=== PATIENT | male | born 1970 | race Caucasian/White ===

== ENCOUNTER → 2020-11-25 16:49 | Outpatient (CLI) | payer BC, SELFPAY ==
[2020-11-25 17:14] LABS: Hematocrit 42.7 % (40-54); Hemoglobin 14.2 g/dL (13.0-16.5); Mean Corp Hgb Conc 33.3 g/dL (32-36); Mean Corpuscular Hgb 26.8 pg (27.0-32.0); Mean Corpuscular Volume 80.6 fL (80-94); Mean Platelet Vol. 8.6 fl (6.2-12.0); Platelet Count 589 K/mm3 (150-450); RBC Distribution Width CV 15.9 % (11.6-14.6); RBC Distribution Width SD 46.4 fl (35.1-43.9); White Blood Count 9.1 K/mm3 (4.4-11.0)
[2020-11-25 17:15] LABS: Scan Indicated on CBC? Y/N NO
[2020-11-25 17:50] LABS: ALB/GLOB Ratio 1.3 RATIO (0.9-2.4); AST(SGOT) 14 U/L (15-37); Alanine Aminotransfer ALT/SGPT 22 U/L (16-61); Alkaline Phosphatase 116 U/L (45-117); Anion Gap 3 (5-15); BUN 8 mg/dL (7-18); BUN/Creat Ratio 9.8 RATIO (10-20); Chloride 103 mmol/L (98-107); Creatinine, Serum 0.82 mg/dL (0.70-1.30); EST Glomerular Filtration Rate 105 mL/min (>60); Est Glom Filt Rate - Afr Amer 128 mL/min (>60); Globulin 3.1 g/dL (2.2-4.2); Glucose 56 mg/dL (74-106); Potassium 3.9 mmol/L (3.5-5.1); Protein, Total 7.1 g/dL (6.4-8.2); Sodium Level 136 mmol/L (136-145)
[2020-12-02 12:08] LABS: Testosterone, % Free 1.91 % (1.50-4.20); Testosterone, Free 6.67 ng/dL (5.00-21.00)
[2020-12-02 15:18] LABS: LDL, Direct 120295 121 mg/dL (0-99); Testosterone, Total 349 ng/dL (264-916)
== END ==
DX: R53.83 Other fatigue (principal); E29.1 Testicular hypofunction
CPT/HCPCS: 36415; 80053; 83721; 84402; 84403; 85027